=== PATIENT | male | born 1990 | race Caucasian/White ===

== ENCOUNTER 2017-06-16 15:13 | Emergency (ER) | payer OTHER ==
[2017-06-16] MEDS ORDERED: Tetan/Diph/Pertus SYR(Tdap)* 0.5 ML SYR(BOOSTRIX) use SYR IM ONE (15:45)
[2017-06-16] MEDS ORDERED: Amoxicillin/Clavulanate TAB* 875 MG PO ONE (15:46)
--- NOTE | 2017-06-16 15:47 | UC ---
Bite Injury/Animal HPI - HPI Summary HPI Summary: bite to left hand no deep puncture superficial scrapes-source patient is a resident at [facility]---Patient has no concerns about HIV/Hepatitis. - History of Current Complaint Chief Complaint: UCBiteInjury Stated Complaint: HUMAN BITE LEFT HAND (WC) Time Seen by Provider: 06/16/17 15:45 Hx Obtained From: Patient Severity Currently: Mild Severity Initially: Mild Onset/Duration: Sudden Onset, Lasting Hours Type of Bite: Human Character: Abrasion/Laceration Aggravating Factor(s): Other Alleviating Factor(s): Other Associated Signs And Symptoms: Positive: Negative - Allergies/Home Medications Allergies/Adverse Reactions: Allergies Allergy/AdvReac Type Severity Reaction Status Date / Time No Known Allergies Allergy Verified 06/16/17 15:40 PMH/Surg Hx/FS Hx/Imm Hx Previously Healthy: Yes - Surgical History Surgical History: None - Family History Known Family History: Positive: None - Social History Occupation: Employed Full-time Lives: With Family Alcohol Use: None Substance Use Type: None Smoking Status (MU): Never Smoked Tobacco Review of Systems Constitutional: Negative Skin: Other - superficial scrapes from a persons teeth Eyes: Negative ENT: Negative Respiratory: Negative Cardiovascular: Negative Gastrointestinal: Negative Genitourinary: Negative Motor: Negative Neurovascular: Negative Musculoskeletal: Negative Neurological: Negative Psychological: Negative Is Patient Immunocompromised?: No All Other Systems Reviewed And Are Negative: Yes Physical Exam Triage Information Reviewed: Yes Appearance: Well-Appearing, No Pain Distress, Well-Nourished Vital Signs: Initial Vital Signs Temp 99.4 F 06/16/17 15:37 Pulse 99 06/16/17 15:37 Resp 14 06/16/17 15:37 BP 134/72 06/16/17 15:37 Vital Signs Reviewed: Yes Eye Exam: Normal Eyes: Positive: Conjunctiva Clear ENT Exam: Normal ENT: Positive: Normal ENT inspection, Hearing grossly normal. Negative: Trismus , Muffled voice, Hoarse voice Dental Exam: Normal Neck exam: Normal Neck: Positive: Supple, Nontender Respiratory Exam: Normal Respiratory: Positive: Normal breath sounds, No respiratory distress, No accessory muscle use Cardiovascular Exam: Normal Cardiovascular: Positive: RRR, Pulses Normal, Brisk Capillary Refill Musculoskeletal Exam: Normal Musculoskeletal: Positive: Strength Intact, ROM Intact, No Edema Neurological Exam: Normal Neurological: Positive: Alert, Muscle Tone Normal Psychological Exam: Normal Skin Exam: Other Skin: Positive: Other - superficial abrasion on back of hand-washed well prior to arrival Bite Injury Course/Dx - Course Course Of Treatment: up date Tetanus, Augmentin labs for baseline follow with pcp - Differential Dx/Diagnosis Provider Diagnoses: human bite, tetanus update Discharge - Discharge Plan Condition: Stable Disposition: HOME Prescriptions: Amoxicillin/Clavulanate TAB* [Augmentin TAB 875*] 875 mg PO BID #19 tab Patient Education Materials: Diphtheria/Acellular Pertussis/Tetanus Booster Vaccine (By injection), Human Bite (ED) Referrals: Sierra Retana MD [Medical Doctor] - 5 Days
== END 2017-06-16 16:11 | disposition home or self-care (01) ==
LOC: UCCORT 15:13
DX: S61.452A Open bite of left hand, initial encounter (principal); Z23 Encounter for immunization; W50.3XXA Accidental bite by another person, initial encounter; Y92.9 Unspecified place or not applicable
CPT/HCPCS: 36415; 86703; 86706; 86803; 87340; 90471; 90715; 99202; A9270-GY; G0463